=== PATIENT | male | born 1995 | race Caucasian/White ===

== ENCOUNTER 2016-11-28 06:53 | Day surgery (SDC) | payer BC ==
[~2016-11-28] VITALS: Ht 177.8 cm; Wt 70.5 kg
[2016-11-28] VITALS (11 sets, daily range): BP systolic 102–148; BP diastolic 57–98; PULSE 43–64; RESP 16–20; TEMP 97.7; O2SAT 47–98
[2016-11-28] MEDS ORDERED: VANCOMYCIN HCL 1000 MG VIAL ONE (07:34)
[2016-11-28] MEDS ORDERED: SODIUM CHLOR 0.9% 250 ML INJ 250 ML ONE (07:35)
[2016-11-28 07:41] LABS: AUTOMATED NEUTROPHIL # 4.7 TH/MM3 (1.8-7.7); BASOPHIL % 0.5 % (0.0-2.0); EOSINOPHIL # 0.1 TH/MM3 (0-0.4); EOSINOPHIL % 0.6 % (0.0-4.0); HEMATOCRIT 46.9 % (39.0-51.0); HEMO FLAGS DIFF FINAL; LYMPH % 36.9 % (9.0-44.0); LYMPHOCYTE # 3.4 TH/MM3 (1.0-4.8); MEAN CORPUSCULAR HGB CONC 34.7 % (32.0-36.0); MONO % 9.7 % (0.0-8.0); NEUT % 52.3 % (16.0-70.0); PLATELET COUNT 232 TH/MM3 (150-450); RED BLOOD COUNT 4.94 MIL/MM3 (4.50-5.90); RED CELL DISTRIBUTION WIDTH 11.8 % (11.6-17.2); WHITE BLOOD COUNT 9.1 TH/MM3 (4.0-11.0)
[2016-11-28 07:50] LABS: PROTHROMBIN TIME - PATIENT 11.1 SEC (9.8-11.6)
[2016-11-28] MEDS ORDERED: SODIUM CHLORIDE 0.9% 1000 ML IV SCH (08:00)
[2016-11-28] MEDS ORDERED: MIDAZOLAM HCL 5 MG/5 ML VIAL ONE (08:03)
[2016-11-28] MEDS ORDERED: fentaNYL CITRATE 250 MCG/5 ML AMP ONE (08:03)
[2016-11-28 08:07] LABS: BICARBONATE 28.9 MEQ/L (21.0-32.0)
[2016-11-28 08:09] LABS: POTASSIUM 4.6 MEQ/L (3.5-5.1)
[2016-11-28] MEDS ORDERED: MIDAZOLAM HCL 2 MG/2 ML VIAL ONE (09:04)
[2016-11-28] MEDS ORDERED: GELATIN 12 MM/7 MM FOAM ONE (09:34)
[2016-11-28] MEDS ORDERED: IODIXANOL 320 MG/ML 50 ML VIAL (for RAD SPEC) IV ONE (09:35)
[2016-11-28] MEDS ORDERED: ACETAMINOPHEN 325 MG TAB PO PRN (09:45)
--- NOTE | 2016-11-28 09:49 | PD.RAD ---
Post Procedure Progress Note Pre Procedure Diagnosis: (1) Left varicocele Post Procedure Diagnosis: (1) Left varicocele Procedure Date: Nov 28, 2016 Supervising Radiologist: Wood Madden Proceduralist/Assist: Morteza Muir RT(R), RT Sd(R)() Anesthesia: Local, Analgesia, Conscious Sedation Plan of Activity Patient to Unit: [facility] Patient Condition: Good See PACS Report for procedural detail/treatment Vascular-Venous Procedure Procedure 1 Procedure Site: Left Renal (Gonadal vein) Procedure(s): Embolization (Left gonadal vein), Venogram Access Access Site(s): Right Femoral Vein Findings: Dilated left gonadal vein. Coil and gelfoam embolization of the same Wood Madden MD Nov 28, 2016 09:49
--- NOTE | 2016-11-28 11:06 | RADRPT ---
EXAM DATE/TIME: 11/28/2016 08:19 [facility] COMPARISON: No previous studies available for comparison. INDICATIONS : Patient with left varicocele in need of veinogram with possible intervention. MEDICAL HISTORY : 1.Left varicocele SURGICAL HISTORY : 1.Lasik 2.Tonsil and adenoids 3.[place] teeth ENCOUNTER: Initial ACUITY: 4 - 6 months PAIN SCORE: 0/10 FLUORO TIME: 17.8 minutes IMAGE SERIES: 6 ACCESS SITE: Right Femoral vein SEDATION TIME: 70 minutes CONTRAST: 1.) 100 cc Visipaque (iodixanol) MEDICATION(S): 1.) 7 mg midazolam (Versed) IV 2.) 350 mcg fentanyl (Sublimaze) IV DEVICE(S): 1.) Left Gonadal Vein 8/4 tornado embolic coil(s) x 5 2.) Left Gonadal Vein 6/3 tornado embolic coil(s) x 2 3.) Left Gonadal Vein 10/5 embolic coil(s) x 1 4.) Left Gonadal Vein 12/7mm Gelfoam PROCEDURES : 1.) Ultrasound guidance for vascular access, right common femoral vein. 2.) Venogram, left renal vein. 3.) Venogram, left gonadal vein. 4.) Coil and Gelfoam embolization, left gonadal vein FINDINGS: With ultrasound and fluoroscopic guidance, the right common femoral vein was accessed with a 21 gauge micropuncture needle. The 0.018 wire was advanced through the needle over which a 3-[address] a[address]. Through the outer 4 [place] dilator, the 0.035 wire was advanced into the IVC. A 4 [place] side-p ort sheath was then advanced over the wire. Over the wire and through the sheath, a Kumpe catheter was used to select the left renal vein. Contra st injection confirmed position. The 035 wire was advanced out into the renal vein. Catheter was exch anged for a glide hockey-stick which was then advanced over the wire. With the wire well seated in th e peripheral portion of the left renal vein, a 5 [place] Rabbe sheath was advanced into the renal vein . Contrast injection through the Rabbe sheath showed a prominent gonadal vein with retrograde filling. The hockey-stick catheter and Glidewire were advanced into the gonadal vein peripherally to a level j ust above the inguinal ligament. Contrast injection confirmed position. A series of Tornado coils wer e placed in the peripheral, mid and central portions of the gonadal vein interspersed with a Gelfoam slurry to embolize the entire incompetent gonadal system. Patient tolerated the procedure well without complication. Continuous vital sign monitoring was perfo rmed by an independent radiology nurse during conscious sedation. CONCLUSION: Left gonadal vein embolization as above. Wood Madden MD on November 28, 2016 at 10:52 Board Certified Radiologist. This report was verified electronically.
--- NOTE | 2016-11-28 14:25 | RADRPT ---
EXAM DATE/TIME: 11/28/2016 14:11 [facility] COMPARISON: No previous studies available for comparison. INDICATIONS : Fall, possibly hit head on the wall. RADIATION DOSE: 56.35 CTDIvol (mGy) MEDICAL HISTORY : None SURGICAL HISTORY : None. ENCOUNTER: Initial ACUITY: 1 day PAIN SCALE: 2/10 LOCATION: Bilateral cranial TECHNIQUE: Multiple contiguous axial images were obtained of the head. Using automated exposure control and adj ustment of the mA and/or kV according to patient size, radiation dose was kept as low as reasonably a chievable to obtain optimal diagnostic quality images. FINDINGS: CEREBRUM: The ventricles are normal for age. No evidence of midline shift, mass lesion, hemorrhage or acute in farction. No extra-axial fluid collections are seen. POSTERIOR FOSSA: The cerebellum and brainstem are intact. The 4th ventricle is midline. The cerebellopontine angle i s unremarkable. EXTRACRANIAL: The visualized portion of the orbits is intact. SKULL: The calvaria is intact. No evidence of skull fracture. CONCLUSION: Negative for acute traumatic injury.. Zackary Nolen MD FACR on November 28, 2016 at 14:22 Board Certified Radiologist. This report was verified electronically.
--- NOTE | 2016-11-29 09:48 | PD.RAD ---
Radiology Note Patient reportedly fell in bathroom after his requisite 2 hours bed rest. Per history, may have had a vaso-vagal event. Hit head and did lose consciousness. CT scan was negative for acute injury. Vital signs were stable. Asisted patietn out of bed and walked with him in [facility]. No additional events. Wood Madden MD Nov 29, 2016 09:48
== END 2016-11-28 16:55 | disposition home or self-care (01) ==
LOC: HROP 06:53 → HRIP 06:55 → HROP 16:55
PROVIDERS: ATTEND Urology
DX: I86.1 Scrotal varices (principal); W19.XXXA Unspecified fall, initial encounter; Y92.231 Patient bathroom in hospital as the place of occurrence of the external cause
CPT/HCPCS: 36012; 37241; 70450; 75831; 76937; 80048; 85025; 85610; 85730; 99152; 99153; C1769; C1887; C1894; J2250; J3010; J3370; J7030; J7050; Q9967